=== PATIENT | female | born 1970 | race Hispanic/Latino ===

== ENCOUNTER 2017-11-24 19:12 | Emergency (ER) | payer BC | END 2017-11-24 19:38 | disposition home or self-care (01) | LOC: EDH 19:12 | DX: J11.1 Influenza due to unidentified influenza virus with other respiratory manifestations (principal); B34.9 Viral infection, unspecified; J45.909 Unspecified asthma, uncomplicated; Z90.49 Acquired absence of other specified parts of digestive tract; Z90.710 Acquired absence of both cervix and uterus ==

== ENCOUNTER → 2020-11-25 | Outpatient (CLI) | payer OTHER | END | disposition home or self-care (01) | LOC: RAH 15:25 | PROVIDERS: ATTEND Family Medicine | DX: Z12.31 Encounter for screening mammogram for malignant neoplasm of breast (principal) | CPT/HCPCS: 77067 ==

== ENCOUNTER 2024-04-29 21:31 | Emergency (ER) | payer OTHER ==
[~2024-04-29] VITALS: Ht 157.5 cm; Wt 89.4 kg
[2024-04-29 21:47] VITALS: BP 128/64; PULSE 89; RESP 18; O2SAT 99
[2024-04-29] MEDS: KETOROLAC 15MG/ML VIAL (15MG/ML) IM STA (22:25)
[2024-04-29] MEDS: METHOCARBAMOL 500 MG TABLET PO STA (22:25)
[2024-04-29] MEDS ORDERED: NAPR-1192 PO (22:29)
[2024-04-29] MEDS ORDERED: METH-662 PO (22:29)
== END 2024-04-29 22:37 | disposition home or self-care (01) ==
LOC: EDH 21:31
DX: R07.81 Pleurodynia (principal); Z90.49 Acquired absence of other specified parts of digestive tract; Z90.710 Acquired absence of both cervix and uterus; Z98.890 Other specified postprocedural states
CPT/HCPCS: 99283; 71101; 96372; J1885

== ENCOUNTER 2024-09-24 16:24 | Emergency (ER) | payer OTHER ==
[~2024-09-24] VITALS: Ht 157.5 cm; Wt 81.6 kg
[~2024-09-24 16:24] MED LIST: METH-662 PO; NAPR-1192 PO
[2024-09-24 17:18] LABS: SARS-CoV-2, RNA, NAAT NEGATIVE SARS CoV-2 (NEGATIVE)
[2024-09-24 17:25] LABS: RAPID GROUP A STREP negative (NEGATIVE)
[2024-09-24 17:26] LABS: INFLUENZA TYPE A Negative For Type A (NEGATIVE); INFLUENZA TYPE B Negative For Type B (NEGATIVE)
[2024-09-24] MEDS ORDERED: GUAI-484 PO (17:36)
[2024-09-24] MEDS ORDERED: METH4TAB3 PO (17:36)
[2024-09-24] MEDS ORDERED: AZIT250T9 PO (17:36)
--- NOTE | 2024-09-24 17:42 | ERN ---
General Chief Complaint: Flu Symptoms Stated Complaint: FLU LIKE SYMPTOMS Time Seen by MD: 16:25 Time Seen by Midlevel: 16:25 Source: patient History of Present Illness Initial Comments Patient is a 54-year-old female with no significant past medical history presenting to the emergency department with flu-like symptoms that have been ongoing for the last five days. Symptoms consist of sinus pressure, nasal discharge, watery eyes, bilateral ear pain, and sore throat. Denies any other symptoms at this time. Allergies: Coded Allergies: No Known Allergies (Unverified Allergy, Unknown, 04/29/24) Home Meds Active Scripts Guaifenesin/Pseudoephedrne HCl (Mucinex D ER 1,200-120 mg Tab) 1,200 Mg-120 Mg Tab.er.12h, 1 TAB PO BID for 5 Days, #10 TAB 0 Refills Prov:ALEXANDRA NAVARRETE 09/24/24 Methylprednisolone (Medrol) 4 Mg Tab.ds.pk, 1 TAB PO AD for 6 Days, #21 TAB 0 Refills 6 on day 1 then reduce by one tablet daily until gone Prov:ALEXANDRA NAVARRETE 09/24/24 Azithromycin (Azithromycin) 250 Mg Tablet, 1 TAB PO AD for 5 Days, #6 TAB 0 Refills 2 the first day followed by 1 for days 2-5 Prov:ALEXANDRA NAVARRETE 09/24/24 Methocarbamol (Robaxin) 750 Mg Tab, 750 MG PO HSPRN PRN for PAIN, #10 TAB Prov:JAZMIN GOODSON 04/29/24 Naproxen (Naproxen) 375 Mg Tablet, 375 MG PO BID for 10 Days, #20 TAB 0 Refills Prov:JAZMIN GOODSON 04/29/24 Past Medical History Past Medical History: No Pertinent History Past Surgical History: Hysterectomy, Cholecystectomy, Other Surgical History Other: BREAST REDUC ROS Dictation CONSTITUTIONAL: Negative except for HPI HEAD/FACE: Negative except for HPI EENT: Negative except for HPI RESPIRATORY: Negative except for HPI GASTROINTESTINAL/ABDOMINAL: Negative except for HPI GENITOURINARY: Negative except for HPI MUSCULOSKELETAL: Negative except for HPI INTEGUMENTARY: Negative except for HPI NEUROLOGICAL/PSYCH: Negative except for HPI HEMATOLOGIC/LYMPHATIC: Negative except for HPI All Systems Negative, Except as noted above. 13 point review of systems assessed and all negative except for above. Physical Exam Physical Exam Dictation Vital Signs reviewed General Appearance: Alert, oriented x 3, no acute distress, well developed, nourished. Head and Face: Sinus pressure Eyes: PERRL, pink conjunctivas, eyelid no trauma, anterior chamber with arcus senilis. Ears: Pinnas intact and no signs of trauma or erythema ear canals clear and no discharge TM no erythema Nose: Clear rhinorrhea to bilateral nostrils Oropharynx: Mouth normal, tongue pink, pharynx clear,no erythema, tonsils no exudates, no abscesses noted, mucous memb reji moist Neck: Supple, non-tender, no thyromegaly, no masses, no JVD, no bruits Breast:Deferred Chest:No tenderness, no crepitus, no paradoxical movement, no retractions Lungs:Clear, well-ventilated, symmetric, no rales, no wheezing, no rhonchi, no s tridor, good breath sounds bilaterally Heart: Regular rate, regular rhythm, no murmur, no gallops Vascular: no peripheral edema, Abdomen: Soft, positive bowel sounds, nondistended, no guarding, nontender, no rebound, no masses no hepatomegaly, no splenomegaly, no Ramos's sign, no hernias. Rectal: Deferred Genital: Deferred Neurological: Normal speech, motor function intact, sensory function intact Musculoskeletal: Neck nontender, full range of motion, back nontender, full range of motion, Extremities: nontender, full range of motion Skin: Color pink, dry, no turgor, no rash, no lacerations, no abrasions, no contusions. Lymphatic: Deferred Results Laboratory and Microbiology Lab and Micro Result Laboratory Tests Test 09/24/24 16:30 Influenza Type A Antigen Negative For Type A Influenza Type B Antigen Negative For Type B SARS-CoV-2, RNA, NAAT NEGATIVE SARS CoV-2 Group A Streptococcus Rapid negative (NEGATIVE) Labs Reviewed?: Yes MDM MDM: Patient is a 54-year-old female with no significant past medical history presenting to the emergency department with flu-like symptoms that have been ongoing for the last five days. Symptoms consist of sinus pressure, nasal discharge, watery eyes, bilateral ear pain, and sore throat. Denies any other symptoms at this time. On physical examination patient has clear rhinorrhea to bilateral nostrils. Her eyes are watery. She was bulging tympanic membranes bilaterally but no evidence of otitis externa. Symptoms are consistent with an upper respiratory infection. Her respiratory swabs are negative. Patient was discharged home with supportive management. She was advised to follow up with PCP in 2-3 days for repeat evaluation. Differential diagnosis: Viral syndrome, upper respiratory infection, strep pharyngitis There are no social concerns with this patient. Prescription drug management Prescriptions will include: Medrol pack, azithromycin, Mucinex Medical management and examination interpretation discussions were had by me with other qualified healthcare professionals as indicated for the patient's care. ED Course Orders Procedure Category Date Status Time Covid Rna Naat LAB 09/24/24 Complete 16:44 Influenza Type A & B, LAB 09/24/24 Complete Rapid 16:44 Rapid (Group A Strep) LAB 09/24/24 Complete 16:44 *Nursing CPOE 09/24/24 Transmitted Communication: 17:37 Dexamethasone 4mg/Ml PHA 09/24/24 Complete 1ml Vial (Dexametha 18:00 Current Medications Medications (Trade) Dose Ordered Sig/Josefina Route PRN Reason Start Time Stop Time Status Last Admin Dose Admin Dexamethasone Sodium Phosphate (dexaMETHasone 4MG/ML 1ML VIAL) 6 mg ONCE ONCE IM 09/24/24 18:00 09/24/24 17:58 DC 09/24/24 17:49 Vital Signs Date Time Temp Pulse Resp B/P (MAP) Pulse Ox O2 Delivery O2 Flow Rate FiO2 09/24/24 17:46 97.0 65 20 138/88 99 Room Air* 0 21 09/24/24 16:26 97.0 85 20 156/100 99 Room Air DX & DISP Disposition: Discharge Departure Impression: Primary Impression: Upper respiratory infection Condition: Stable Scripts Guaifenesin/Pseudoephedrne HCl (Mucinex D ER 1,200-120 mg Tab) 1,200 Mg-120 Mg Tab.er.12h 1 TAB PO BID for 5 Days, #10 TAB 0 Refills Prov: ALEXANDRA NAVARRETE 09/24/24 Methylprednisolone (Medrol) 4 Mg Tab.ds.pk 1 TAB PO AD for 6 Days, #21 TAB 0 Refills 6 on day 1 then reduce by one tablet daily until gone Prov: ALEXANDRA NAVARRETE 09/24/24 Azithromycin (Azithromycin) 250 Mg Tablet 1 TAB PO AD for 5 Days, #6 TAB 0 Refills 2 the first day followed by 1 for days 2-5 Prov: ALEXANDRA NAVARRETE 09/24/24 Additional Instructions: You have tested negative for influenza a, influenza B, COVID-19, and strep. Follow up with your primary care doctor in 2-3 days for repeat evaluation. Return to the ER for any new or worsening symptoms. Referrals: ADRIANA GOFF MD (PCP) Time of Disposition: 17:33 I have reviewed the case, and I agree with, Diagnosis and Plan I performed the substantive portion of the visit. I have reviewed and personally made and approve the management plan that is documented in the note by myself or the ERIN. I acknowledge for responsibility for the patient's management plan. ALEXANDRA NAVARRETE Sep 24, 2024 17:42 JEANNINE DEE DO Sep 25, 2024 07:32
[2024-09-24 17:46] VITALS: BP 138/88; PULSE 65; RESP 20; TEMP 97; O2SAT 99
[2024-09-24] MEDS: dexaMETHasone SOD PHOSPHATE 4 MG/ML 1ML VIAL IM ONE (17:49)
== END 2024-09-24 17:57 | disposition home or self-care (01) ==
LOC: EDH 16:24
DX: J06.9 Acute upper respiratory infection, unspecified (principal); Z90.49 Acquired absence of other specified parts of digestive tract; Z90.710 Acquired absence of both cervix and uterus; Z20.822 Contact with and (suspected) exposure to COVID-19
CPT/HCPCS: 99283; 87635; 87880; 87804 ×2; 96372; J1100

== ENCOUNTER 2025-02-28 20:14 | Emergency (ER) | payer OTHER ==
[~2025-02-28] VITALS: Ht 157.5 cm; Wt 81.6 kg
[~2025-02-28 20:14] MED LIST changes: +AZIT250T9 PO; +GUAI-484 PO; +METH4TAB3 PO
--- NOTE | 2025-02-28 20:19 | NUR ---
COVID, FLU AND STREP SWABS COLLECTED AND SENT [facility] PROVIDED
[2025-02-28 20:33] LABS: RAPID GROUP A STREP negative (NEGATIVE)
[2025-02-28 20:45] LABS: INFLUENZA TYPE A Negative For Type A (NEGATIVE); INFLUENZA TYPE B Negative For Type B (NEGATIVE)
[2025-02-28 20:47] LABS: SARS-CoV-2, RNA, NAAT NEGATIVE SARS CoV-2 (NEGATIVE)
--- NOTE | 2025-02-28 21:34 | ERN ---
General Chief Complaint: Flu Symptoms Stated Complaint: COUGH, SORE THROAT, BODYACHES, FEVER Time Seen by MD: 20:28 Source: patient History of Present Illness Initial Comments Patient is a healthy 54-year-old female who has had an upper respiratory tract infection associated with nausea and vomiting for the last three days. She is completely stuffed up and miserable. She is here to figure out what is causing her symptoms and also for help relieving them. She has no past medical history beyond possible fatty liver. Allergies: Coded Allergies: No Known Allergies (Unverified Allergy, Unknown, 04/29/24) Home Meds Active Scripts Guaifenesin/Pseudoephedrne HCl (Mucinex D ER 1,200-120 mg Tab) 1,200 Mg-120 Mg Tab.er.12h, 1 TAB PO BID for 5 Days, #10 TAB 0 Refills Prov:ALEXANDRA NAVARRETE 09/24/24 Methylprednisolone (Medrol) 4 Mg Tab.ds.pk, 1 TAB PO AD for 6 Days, #21 TAB 0 Refills 6 on day 1 then reduce by one tablet daily until gone Prov:ALEXANDRA NAVARRETE 09/24/24 Azithromycin (Azithromycin) 250 Mg Tablet, 1 TAB PO AD for 5 Days, #6 TAB 0 Ref ills 2 the first day followed by 1 for days 2-5 Prov:ALEXANDRA NAVARRETE 09/24/24 Methocarbamol (Robaxin) 750 Mg Tab, 750 MG PO HSPRN PRN for PAIN, #10 TAB Prov:JAZMIN GOODSON 04/29/24 Naproxen (Naproxen) 375 Mg Tablet, 375 MG PO BID for 10 Days, #20 TAB 0 Refills Prov:JAZMIN GOODSON 04/29/24 Past Medical History Past Medical History: No Pertinent History Past Surgical History: Hysterectomy, Cholecystectomy, Other Surgical History Other: BREAST REDUC Constitutional: (+) chills, (+) fever, (+) weakness EENTM: (-) eye pain, (-) blurred vision, (-) tearing, (-) double vision, (-) ear pain, (-) ear discharge, (-) nose pain, (-) nose congestion, (-) throat pain, (-) Throat swelling, (-) mouth pain, (-) tooth pain, (-) mouth swelling, (-) other documentation Respiratory: (+) cough Cardiovascular: (-) chest pain, (-) edema, (-) palpitations, (-) syncope, (-) dyspnea on exertion, (-) other documentation Gastrointestinal/Abdominal: (+) nausea, (+) vomiting Musculoskeletal: (-) Neck pain, (-) back pain, (-) Flank Pain, (-) joint pain, (-) joint swelling, (-) muscle pain, (-) muscle stiffness, (-) gout, (-) other documentation Neuro: (-) altered mental status, (-) headache, (-) syncope, (-) paralysis, (-) numbness, (-) seizure, (-) pre-existing deficit, (-) tremors, (-) weakness, (-) dizziness, (-) slurred speech, (-) vertigo, (-) other documentation Physical Exam General Appearance: (+) moderate distress Orientation: (+) oriented x 3 Head/Face Trauma: No Eye: bilateral eye normal inspection, bilateral eye PERRL, bilateral eye EOMI Ear, Nose, Throat: (+) hearing grossly normal, (+) normal ENT inspection Neck: (+) normal inspection, (+) supple Respiratory: (+) chest non-tender, (+) lungs clear, (+) well ventilated Heart: (+) regular, (+) no gallop Vascular: (+) no edema, (+) normal peripheral pulse Gastrointestinal: (+) soft, (+) non-tender, (+) bowel sound present Results Laboratory and Microbiology Lab and Micro Result Laboratory Tests Test 02/28/25 20:19 02/28/25 21:47 Influenza Type A Antigen Negative For Type A Influenza Type B Antigen Negative For Type B SARS-CoV-2, RNA, NAAT NEGATIVE SARS CoV-2 Group A Streptococcus Rapid negative (NEGATIVE) White Blood Count 5.2 K/uL (4.8-10.8) Red Blood Count 4.83 MIL/uL (4.00-5.50) Hemoglobin 15.0 g/dL (12.0-16.0) Hematocrit 45.5 % (36-48) Mean Corpuscular Volume 94.2 fL (79-99) Mean Corpuscular Hemoglobin 31.1 pg (27.0-33.0) Mean Corpuscular Hemoglobin Concent 33.0 g/dL (32.0-36.0) Red Cell Distribution Width 13.6 % (11.0-15.5) Platelet Count 210 K/uL (130-400) Mean Platelet Volume 9.3 fL (7.5-10.5) Immature Granulocyte % (Auto) 0.4 % (0-1) Neutrophils (%) (Auto) 59.8 % (40.0-77.0) Lymphocytes (%) (Auto) 22.8 % (21.0-51.0) Monocytes (%) (Auto) 14.1 % (3.0-13.0) H Eosinophils (%) (Auto) 2.5 % (0.0-8.0) Basophils (%) (Auto) 0.4 % (0.0-5.0) Neutrophils # (Auto) 3.1 K/uL (1.8-7.7) Lymphocytes # (Auto) 1.2 K/uL (1.0-4.8) Monocytes # (Auto) 0.7 K/uL (0.1-1.0) Eosinophils # (Auto) 0.13 K/uL (0.00-0.70) Basophils # (Auto) 0.02 K/uL (0.00-0.20) Absolute Immature Granulocyte (auto 0.02 K/uL (0-1) Nucleated Red Blood Cells 0.0 % (0.0-0.19) Urine Color YELLOW (YELLOW) Urine Appearance CLEAR (CLEAR) Urine pH 6.0 (5.0-8.0) Urine Specific [place] 1.017 (1.001-1.031) Urine Protein NEGATIVE mg/dL (NEGATIVE) Urine Glucose (UA) NEGATIVE mg/dL (NEGATIVE) Urine Ketones NEGATIVE mg/dL (NEGATIVE) Urine Occult Blood +- (TRACE) (NEGATIVE) H Urine Nitrate NEGATIVE (NEGATIVE) Urine Bilirubin NEGATIVE mg/dL (NEGATIVE) Urine Urobilinogen 0.2 mg/dL (0.2-1.0) Urine Leukocyte Esterase NEGATIVE Cindy/uL Urine RBC 2-5 /HPF (0-1) H Urine WBC 0-1 /HPF (0-1) Urine Squamous Epithelial Cells RARE /HPF (0-2) Urine Bacteria None /HPF (None Seen) Sodium Level 140 mmol/L (136-145) Potassium Level 4.4 mmol/L (3.5-5.1) Chloride Level 103 mmol/L (101-111) Carbon Dioxide Level 30 mmol/L (21-32) Blood Urea Nitrogen 11 mg/dL (7-18) Creatinine 0.9 mg/dL (0.5-1.0) Glomerular Filtration Rate Calc 76 mL/min (>90) Random Glucose 123 mg/dL (70-105) H Total Calcium 9.3 mg/dL (8.5-10.1) Total Bilirubin 0.2 mg/dL (0.2-1.0) Aspartate Amino Transf (AST/SGOT) 60 U/L (10-37) H Alanine Aminotransferase (ALT/SGPT) 119 U/L (12-78) H Alkaline Phosphatase 140 U/L (50-136) H Total Protein 7.9 g/dL (6.0-8.3) Albumin 3.8 g/dL (3.5-5.0) Procalcitonin 0.05 ng/mL (0.05-0.5) MDM Nasal swabs were performed already and the patient is negative for strep negative for COVID and negative for influenza B. she clearly has an upper respiratory tract infection of some kind, most likely viral. We will give her some Afrin spray, CBC, procalcitonin, CMP. and fluids. She has received one liter of LR and feels much better. I will give another L of LR. ED Course Orders Procedure Category Date Status Time Covid Rna Naat LAB 02/28/25 Complete 20:18 Influenza Type A & B, LAB 02/28/25 Complete Rapid 20:18 Rapid (Group A Strep) LAB 02/28/25 Complete 20:18 Cbc With Differential LAB 02/28/25 Complete 21:34 Comprehensive LAB 02/28/25 Complete Metabolic Panel 21:34 Urinalysis Profile LAB 02/28/25 Complete 21:34 Lactated Ringers PHA 02/28/25 Complete 1000ml (Lactated 22:00 Acetaminophen 325 Tab PHA 02/28/25 Complete (Tylenol 325mg Tab 22:00 Chest 1vw RAD 02/28/25 Taken 21:34 Procalcitonin LAB 02/28/25 Complete 21:34 Lactated Ringers PHA 02/28/25 Logged 1000ml (Lactated 23:20 Current Medications Medications (Trade) Dose Ordered Sig/Josefina Route PRN Reason Start Time Stop Time Status Last Admin Dose Admin Acetaminophen (TYLenol 325MG TAB) 650 mg ONCE ONCE PO 02/28/25 22:00 02/28/25 22:01 DC 02/28/25 22:03 Lactated Ringer's 1,000 ml @ 0 mls/hr ONCE ONCE IV 02/28/25 22:00 02/28/25 22:01 DC 02/28/25 22:34 Lactated Ringer's (Lactated Ringers 1000ml) 1,000 ml BOLUS STAT IV 02/28/25 23:20 02/28/25 23:21 UNV Vital Signs Date Time Temp Pulse Resp B/P (MAP) Pulse Ox O2 Delivery O2 Flow Rate FiO2 02/28/25 22:34 99.0 98 20 128/75 98 Room Air* 0 21 02/28/25 22:03 99.0 02/28/25 20:15 99.0 102 20 153/97 99 Room Air DX & DISP Disposition: Discharge Departure Impression: Primary Impression: Upper respiratory infection Condition: Stable Additional Instructions: Please return to the emergency room if your symptoms do not get better after a week. Referrals: ADRIANA GOFF MD (PCP) DENISE BAILEY MD Feb 28, 2025 21:34
[2025-02-28 21:55] LABS: BASOPHILS # (AUTO) 0.02 K/uL (0.00-0.20); BASOPHILS % (AUTO) 0.4 % (0.0-5.0); EOSINOPHILS # (AUTO) 0.13 K/uL (0.00-0.70); EOSINOPHILS % (AUTO) 2.5 % (0.0-8.0); HEMATOCRIT 45.5 % (36-48); IMMATURE GRANULOCYTE ABSOLUTE 0.02 K/uL (0-1); LYMPHOCYTES # (AUTO) 1.2 K/uL (1.0-4.8); LYMPHOCYTES % (AUTO) 22.8 % (21.0-51.0); MEAN CORPUSCULAR HEMOGLOBIN 31.1 pg (27.0-33.0); MEAN CORPUSCULAR VOLUME 94.2 fL (79-99); MONOCYTES # (AUTO) 0.7 K/uL (0.1-1.0); MONOCYTES % (AUTO) 14.1 % (3.0-13.0); NEUTROPHILS # (AUTO) 3.1 K/uL (1.8-7.7); NEUTROPHILS % (AUTO) 59.8 % (40.0-77.0); PLATELET COUNT (AUTO) 210 K/uL (130-400); RED BLOOD CELL COUNT(AUTO) 4.83 MIL/uL (4.00-5.50); RED CELL DISTRIBUTION WIDTH 13.6 % (11.0-15.5); WHITE BLOOD COUNT (AUTO) 5.2 K/uL (4.8-10.8)
[2025-02-28 21:56] LABS: APPEARANCE,URINE CLEAR (CLEAR); BILIRUBIN,URINE NEGATIVE (NEGATIVE); COLOR,URINE YELLOW (YELLOW); GLUCOSE, URINE (UA) NEGATIVE (NEGATIVE); KETONES,URINE NEGATIVE (NEGATIVE); LEUKOCYTE ESTERASE ,URINE NEGATIVE Leu/uL (NEGATIVE); NITRATE,URINE NEGATIVE (NEGATIVE); PROTEIN,URINE NEGATIVE (NEGATIVE); UROBILINOGEN,URINE 0.2 mg/dL (0.2-1.0)
[2025-02-28 21:57] LABS: ADD UA MICROSCOPIC YES
[2025-02-28 21:58] LABS: MUCUS,URINE RARE LPF (None Seen); SQUAMOUS EPITHELIAL CELL,UR RARE /HPF (0-2); WBC,URINE 0-1 /HPF (0-1)
[2025-02-28] MEDS: acetaMINOPHEN 325 MG TAB PO ONE (22:03)
[2025-02-28 22:06] LABS: CREATININE 0.9 mg/dL (0.5-1.0); POTASSIUM 4.4 mmol/L (3.5-5.1)
[2025-02-28 22:11] LABS: ALBUMIN 3.8 g/dL (3.5-5.0); BILIRUBIN,TOTAL 0.2 mg/dL (0.2-1.0); TOTAL PROTEIN, SERUM 7.9 g/dL (6.0-8.3)
[2025-02-28] MEDS: LACTATED RINGERS 1000ML 1,000 ML IV ONE (22:34)
[2025-02-28 23:23] VITALS: TEMP 98.9
[2025-02-28] MEDS: LACTATED RINGERS 1000ML IV STA (23:31)
[2025-02-28] MEDS: OXYmetazolone HCL SPRAY 15 ML BOTTLE EN SCH (23:50)
[2025-02-28 23:55] VITALS: BP 121/72; PULSE 92; RESP 18; TEMP 99.1; O2SAT 98
--- NOTE | 2025-03-01 08:30 | HMCIMG ---
INDICATION: flu TECHNIQUE: CHEST 1VW COMPARISON: None FINDINGS AND IMPRESSION: Prominent bilateral interstitial markings which may represent bronchitis or vascular congestion in the proper clinical setting. Cardiac silhouette is within normal limits. Mild degenerative changes of the spine. The visualized upper abdomen appears unremarkable.
[2025-03-01] MEDS ORDERED: OXYmetazolone HCL SPRAY 15 ML BOTTLE EN SCH (09:00)
== END 2025-03-01 00:20 | disposition home or self-care (01) ==
LOC: EDH 20:14
DX: J06.9 Acute upper respiratory infection, unspecified (principal); R11.2 Nausea with vomiting, unspecified; Z20.822 Contact with and (suspected) exposure to COVID-19; Z79.899 Other long term (current) drug therapy; Z90.49 Acquired absence of other specified parts of digestive tract; Z90.710 Acquired absence of both cervix and uterus; Z98.890 Other specified postprocedural states
CPT/HCPCS: 99284; 96360; 71045; 87635; 80053; 85025; 87880; 87804 ×2; 81001; 36415; 84145; J7120 ×2